=== PATIENT | female | born 1950 | race Caucasian/White ===

== ENCOUNTER → 2017-03-13 | Day surgery (SDC) | payer MEDICARE, OTHER ==
[~2017-03-13] VITALS: Ht 165.1 cm; Wt 72.6 kg
[~2017-03-13] MED LIST: 0.9% Sodium Chloride 1,000 ML IV PRN; BUPR150T12 PO; FLUO40CA PO; Lactated Ringer's 1,000 ML IV ONE; Natural Thyroid PO; OMEP20CA11 PO; Sodium Chloride LOK Flush 10 mL Syringe IV PRN; fentaNYL-PF 50 mCg/mL 2 mL Inj IVPUSH PRN
[2017-03-13 12:25] VITALS: BP 122/77; PULSE 70; RESP 15; O2SAT 96
--- NOTE | 2017-03-13 13:29 | PCM.ENDEGD ---
EGD Date of Service: Mar 13, 2017 Physician Ash Schmitz MD Pre Procedure Diagnosis: Abdominal pain Post Procedure Dx & Findings: Esophagitis and unusual stomach anatomy Procedure Esophagogastroduodenoscopy PROCEDURE IN DETAIL: After proper sedation, Olympus video endoscope was inserted into patient's mouth and esophagus was successfully intubated. Scope introduced esophagus. Esophagus showed normal shiny whitish mucosa consistent with squamous cell component. Z line was intact at 40 cm from the incisors. However there was a one spot that looked irritated. This was biopsied. Scope further advanced to the stomach. Stomach showed normal shiny mucosa with normal appearing rugae folds without any ulcer mass erosion. On retroflexion, I was able to see the body and the antrum. I straightened the stomach and I was able to go into the duodenum. Cardia fundus body antrum pylorus were all visualized. Retroflexion was done. Stomach was easily inflated and deflatable using air. Scope further advanced to the distal duodenum. Duodenum revealed normal villous structures with normal appearing folds without any mass ulcer erosion. Impression Possible esophagitis I was able to see the antrum on retroflexion. Recommendation Diameter esophagram upper GI series. Presedation Assessment Risks and Benefits Informed consent was obtained from the patient after all risks and benefits including but not limited to drug reaction, infection, pain, bleeding, perforation, as well as alternatives were discussed. Patient monitoring Continuous pulse oximetry, cardiac monitoring, blood pressure monitoring, IV access, and oxygen at 2L per nasal cannula. Periprocedural Fentanyl: Fentanyl 125mcg Incrementally Midazolam: Midazolam 6mg Incrementally Complications There were no periprocedural complications identified. Post Procedure Plan Post Procedure Recommendations 1. Restrict activities today. 2. Resume normal activities in the morning. 3. Resume medications. 4. GERD behavioral modification: - Avoid fatty, acidic, spicy, large meals - Do not lie down after meals - Do not eat or drink anything for at least 2 1/2 hours before going to bed at night - Discontinue tobacco and alcohol - Decrease or avoid caffeine - Avoid chocolate and mints - Decrease weight - Avoid aspirin and non steroidal anti-inflammatory agents (NSAID) such as Aleve, Advil, Mobic, Naproxen, Ibuprofen, etc 5. Add proton pump inhibitor. Take 30 minutes before 1st meal of the day. 6. Patient informed of normal post procedure side effects as bloating, drowsiness, blood streaking in the stool 7. If gastric biopsy reveal H.pylori, continue with appropriate treatment 8. If small bowel biopsy reveals celiac, continue with appropriate treatment 9. Please don't hesitate to call me with any questions Ash Schmitz MD Mar 13, 2017 13:29
[2017-03-13 13:30] VITALS: BP 106/60; PULSE 75; RESP 16; O2SAT 97
--- NOTE | 2017-03-13 13:32 | PCM.ENDCOL ---
Colonoscopy Date of Service: Mar 13, 2017 Physician Ash Schmitz MD Pre Procedure Diagnosis: Screening Post Procedure Dx & Findings: Polyp hemorrhoids diverticula Procedure Colonoscopy PROCEDURE IN DETAIL: Prep adequate Withdrawal time 25 minutes After unremarkable rectal examination the Olympus video colonoscope was inserted patient's anal canal and was advanced to cecum. Landmarks were identified including the ileocecal valve and appendiceal orifice. Scope was withdrawn systematically. Visualized colonic mucosa showed healthy shiny mucosa with normal healthy-appearing vasculature. 1.5 cm AVM nonbleeding noted in the ascending colon. In the ascending colon, there was a 2 cm flat polyp. This was raised with normal saline 4 mL. And was resected completely using hot snare. This was taken out in a piecemeal fashion. 2 mL Maria Eugenia ink injected. 3 resolution clips deployed to seal of the defect. In the ascending colon there were 2 additional polyps. There were both about a centimeter in size. They are both resected completely using hot snare. Both sites showed visible vessel. Therefore one resolution clip deployed to close off those defects. Patient had medium to large sized diverticula mostly in the sigmoid colon but all the way up to the ascending colon. In the rectum retroflexion was done which showed hemorrhoids. Anal canal was inspected carefully on the way out and hemorrhoids noted. Impression Polyps 3 status post complete removal Diverticuli ADM 1-1/2 cm in the ascending colon. Hemorrhoids Recommendation Repeat colonoscopy 3 month Diverticular diet Presedation Assessment Risks and Benefits Informed consent was obtained from the patient after all risks and benefits including but not limited to drug reaction, infection, pain, bleeding, perforation, as well as alternatives were discussed. Patient monitoring Continuous pulse oximetry, cardiac monitoring, blood pressure monitoring, IV access, and oxygen at 2L per nasal cannula. Complications There were no periprocedural complications identified. Post Procedure Plan Post Procedure Recommendations 1. Restrict activities today. 2. Resume normal activities in the morning. 3. Resume medications. 4. Patient informed of normal post procedure side effects as bloating, drowsiness, blood streaking in the stool. 5. average risk CRCS. If colon polyps come back as: -Hyperplastic- can repeat colonoscopy in 10 years -Tubular adenoma- repeat colonoscopy in 5 years -Tubulovillous/villous adenoma- repeat colonoscopy in 3 years -If any dysplasia- return to clinic as soon as possible 6. Please don't hesitate to call me with any questions. Ash Schmitz MD Mar 13, 2017 13:32
[2017-03-13 13:40] VITALS: BP 107/71; PULSE 70; RESP 16; O2SAT 100
[2017-03-13 13:50] VITALS: BP 107/65; PULSE 69; RESP 16; O2SAT 95
[2017-03-13 14:01] VITALS: BP 107/65; PULSE 73; RESP 13; O2SAT 99
--- NOTE | 2017-03-15 14:33 | PATH ---
SURGICAL PATHOLOGY Attending Physician:Ash Schmitz M.D. CASE STATUS: Signed Out PATIENT NAME: BEATRIZ HOUSTON PID: [id number] : 1950 DATE COLLECTED:03/13/2017 20:31 SPECIMEN: 1: Esophagus, Biopsy 2: Colon, Polyp CLINICAL HISTORY: 1). GASTRO-ESOPHAGEAL JUNCTION BIOPSY 2). ASCENDING POLYPS X3 FINAL DIAGNOSIS: 1. Gastroesophageal Junction, Biopsy: Squamocolumnar junctional mucosa with no diagnostic abnormality. Negative for Covington's metaplasia / intestinal metaplasia by Alcian blue pH2.5/PAS stain. Negative for dysplasia and malignancy. 2. Ascending Colon, Polyps x 3, Biopsies: Multiple (approximately 15) fragments of tubular adenoma; negative for high-grade dysplasia. ICD10: K63.5 GROSS DESCRIPTION: The specimen is received in three formalin filled containers labeled with the patient's name. 1). The specimen is labeled "GEJ" and consists of a 0.1 x 0.1 x 0.1 CM portion of tissue which is entirely submitted in cassettes 1A. 2). The specimen is labeled "ascending polyp x3" and consists of multiple portions of tissue which aggregate to 1.3 1.0 x 0.5 CM. The specimen is filtered and entirely submitted in cassette 2A. 03/13/2017DC ICD-9 CODES: CPT CODES: 1: 31321, 73487 2: 37491 Electronically Signed Out Beatriz Bourgeois MD [facility] Pathology [facility], [place] [address] Technical component performed at [facility], [address] [place] [address] Ave[address], [place], [address]
== END | disposition home or self-care (01) ==
LOC: END 00:35
PROVIDERS: ATTEND Internal Medicine
DX: Z12.11 Encounter for screening for malignant neoplasm of colon (principal); D12.2 Benign neoplasm of ascending colon; K57.30 Diverticulosis of large intestine without perforation or abscess without bleeding; K64.8 Other hemorrhoids; K20.9 Esophagitis, unspecified; R10.9 Unspecified abdominal pain; Z79.899 Other long term (current) drug therapy
CPT/HCPCS: 43239; 45381; 45385; 88305; 88313; 99153; G0500; J2250; J3010; J7030